=== PATIENT | female | born 1980 | race Caucasian/White ===

== ENCOUNTER 2023-02-22 07:06 | Day surgery (SDC) | payer BC, SELFPAY ==
[2023-02-22] VITALS (12 sets, daily range): BP systolic 97–174; BP diastolic 59–93; PULSE 66–91; RESP 10–27; TEMP 36.2–37; O2SAT 92–100; BMI 36.2
[2023-02-22] MEDS: LACTATED RINGER'S SOLUTION 1,000 ML 50 ML IV (08:06)
[2023-02-22] MEDS: CEFAZOLIN SODIUM/DEXTROSE,ISO 2 GM/50 ML PIGGYBACK IV (08:27)
[2023-02-22] MEDS: BUPIVACAINE HCL 0.25% PF 25 MG/10 ML VIAL 20 ML INJ (08:49)
[2023-02-22] MEDS: ONDANSETRON PF 4 MG/2 ML VIAL IV (10:23)
[2023-02-22] MEDS: HYDROCODONE/ACETAMINOPHEN 5-325 MG TABLET 1 TAB PO (10:57)
--- NOTE | 2023-02-22 11:18 | P.GSPRC_ITS ---
Date of procedure: 02/22/23 Indications for Procedure: this patient is a 42-year-old female who was recently seen for episodes of right upper quaddrant pain. Gallbladder ultrasound revealed cholelithiasis. Robotic cholecystectomy was surgically recommended. The risks benefits options and potential indications of the procedure were discussed in detail with her and she agreed to proceed and consent was signed. Pre-op diagnosis: symptomatic cholelithiasis Post-op diagnosis: same Procedure: robotic cholecystectomy with ICG cholangiogram Surgeon: Alvarez Jenkins Procedure Summary: The patient was brought to the operating room placed in the supine position. Gen. anesthesia was induced and the patient was intubated. The abdomen was prepped and draped in usual sterile fashion. She had been given preoperative IV antibiotics and was also given preoperative ICG. A site in the left upper quadrant was infiltrated with half percent Marcaine with epinephrine. A small incision was made. A 12 mm port was placed through this incision and advanced into the peritoneal cavity under laparoscopic guidance. The abdomen was then insufflated to 15 mmHg of carbon dioxide. The camera was reintroduced and safe port site entry was confirmed. Three 8 mm robotic ports were then placed, one at the umbilicus and two in the right lateral abdomen following local anesthesia under direct visualization. The camera was removed and an additional 8 mm port was placed through the 12 mm port. the patient was then placed in reverse Trendelenburg position and banked to the left. At this time the da Nitish XI was brought to the field and camera was introduced and all ports direct and instruments introduced in standard fashion.at this time I left the operating table and attended the surgeon consult. The fundus of the gallbladder is grasped and retracted cephalad. The region of Gil's pouch was grasped and retracted laterally. Dissection was not carried out in the region of the triangle of Calot. The cystic duct was readily identified. This was confirmed with a senior applications architect. This was then divided between clips. Posterior to this the cystic artery was identified. This was divided after clip placement. The gallbladder was then taken off the liver using electrocautery. Excellent hemostasis and secured clip placement was noted. The gallbladder was then placed in a retrieval bag. This was brought out through the 12 mm port site intact. Instruments, camera and ports were subsequently removed and the abdomen was desufflated. Skin incisions were closed with subcuticular sutures of 4-0 Vicryl. Sterile dressings were applied. The patient tolerated the procedure well and was transferred to the recovery area in stable condition. Estimated blood loss (mL): 2 Specimens: gallbladder Complications: No
--- NOTE | 2023-02-22 11:19 | PC.NURSE ---
INSTRUCTION GIVEN ON PEP DEVICE AND PATIENT IS USING WITHOUT DIFFICULTY. PATIENT UPTO CHAIR WITH ASSIST X1
--- NOTE | 2023-02-22 11:23 | PC.NURSE ---
UPTO BR AND VOIDS WITHOUT DIFFICULTY
== END 2023-02-22 11:36 | disposition home or self-care (01) ==
PROVIDERS: PCP Family Medicine; Visit Provider Surgery
PROC: (CPT 47563; principal; 2023-02-22 08:30)
DX: K80.10 Calculus of gallbladder with chronic cholecystitis without obstruction (principal); E78.00 Pure hypercholesterolemia, unspecified; Z79.899 Other long term (current) drug therapy; Z90.710 Acquired absence of both cervix and uterus; F17.210 Nicotine dependence, cigarettes, uncomplicated
CPT/HCPCS: 47563; 36415; 88304

== ENCOUNTER 2024-11-10 06:23 | Emergency (ER) | payer BC, SELFPAY ==
[2024-11-10 06:32] VITALS: BP 115/85; PULSE 91; TEMP 36.7; O2SAT 98; BMI 38.3
[2024-11-10 06:48] VITALS: O2SAT 98
[2024-11-10] MEDS: lidocaine HCL 15 ML, MAG HYDROX/ALUMINUM HYD/SIMETH 30 ML, HYOSCYAMINE SULFATE 0.25 MG PO (07:57)
--- NOTE | 2024-11-10 11:25 | ED_ITS ---
HPI - Abdominal Pain General Chief Complaint: Abdominal Pain Stated Complaint: ABDOMINAL PAIN Time Seen by Provider: 11/10/24 07:44 Source: patient Mode of arrival: walk-in Limitations: no limitations History of Present Illness HPI narrative: The patient is coming to the ER with 1 year history of epigastric pain that is evaluated multiple time according to her , patient mentioned that she was evaluated multiple times she had cholecystectomy even to help improving the pain but she still have that epigastric pain. The pain usually comes whenever she is feeling hungry and get better whenever she eating and sometimes it is not related to food No shortness of breath no nausea no vomiting no other concerns Patient referred to GI as outpatient but she never was evaluated because she did not have an appointment yet Related Data Home Medications ?Medication ?Instructions ?Recorded ?Confirmed B12 IM IM .weekly 02/15/23 hyoscyamine 0.15 mg tablet 0.125 mg PO Q6H PRN dyspepsia 02/15/23 02/22/23 ondansetron 4 mg disintegrating 4 mg PO Q6H PRN nausea and vomiting 02/15/23 02/22/23 tablet semaglutide (weight loss) subcut .weekly 02/15/23 Previous Rx's ?Medication ?Instructions ?Recorded hydrocodone 5 mg-acetaminophen 325 1 tab PO Q6H PRN pain #4 tabs 02/22/23 mg tablet famotidine 20 mg tablet (Pepcid) 20 mg PO BID #10 tabs 11/10/24 pantoprazole 40 mg tablet,delayed 40 mg PO DAILY 4 weeks #28 tabs 11/10/24 release (Protonix) sucralfate 100 mg/mL oral 1 g (10 mL) PO TID #414 mL 11/10/24 suspension Allergies Allergy/AdvReac Type Severity Reaction Status Date / Time morphine Allergy Severe itching Verified 11/10/24 06:38 Review of Systems ROS Status of ROS 10 or more systems reviewed and unremark able except as noted in history and below [facility] Medical History (Updated 11/10/24 @ 08:21 by Estee Judge MD) Globus sensation ?R09.89 - Other specified symptoms and signs involving the circulatory and respiratory systems (ICD-10) Dysphagia ?R13.10 - Dysphagia, unspecified (ICD-10) Uterine leiomyoma ?D25.9 - Leiomyoma of uterus, unspecified (ICD-10) UTI (urinary tract infection) ?N39.0 - Urinary tract infection, site not specified (ICD-10) Placenta previa ?O44.00 - Complete placenta previa NOS or without hemorrhage, unspecified trimester (ICD-10) Menorrhagia ?N92.0 - Excessive and frequent menstruation with regular cycle (ICD-10) High cholesterol ?E78.00 - Pure hypercholesterolemia, unspecified (ICD-10) Hiatal hernia ?K44.9 - Diaphragmatic hernia without obstruction or gangrene (ICD-10) Headache ?R51.9 - Headache, unspecified (ICD-10) Dyspareunia Dysmenorrhea ?N94.6 - Dysmenorrhea, unspecified (ICD-10) Acute pelvic pain ?R10.2 - Pelvic and perineal pain (ICD-10) Gallstone ?K80.20 - Calculus of gallbladder without cholecystitis without obstruction (ICD-10) Thin blood ?D69.6 - Thrombocytopenia, unspecified (ICD-10) Anxiety ?F41.9 - Anxiety disorder, unspecified (ICD-10) Cyst of kidney, acquired ?N28.1 - Cyst of kidney, acquired (ICD-10) Surgical History (Updated 02/15/23 @ 11:08 by Amy Rdoriguez) History of tonsillectomy and adenoidectomy ?Z90.89 - Acquired absence of other organs (ICD-10) [place] teeth extracted ?K08.409 - Partial loss of teeth, unspecified cause, unspecified class (ICD- 10) S/P total abdominal hysterectomy ?Z90.710 - Acquired absence of both cervix and uterus (ICD-10) History of esophagogastroduodenoscopy (EGD) ?Z98.890 - Other specified postprocedural states (ICD-10) Hx of laparoscopy ?Z98.890 - Other specified postprocedural states (ICD-10) History of bilateral ligation of fallopian tubes ?Z98.51 - Tubal ligation status (ICD-10) Family History (Updated 02/15/23 @ 10:32 by Amy Rodriguez) Other Cystic kidney disease Family history of cancer Family history of diabetes mellitus Heart disease Hepatitis Social History (Updated 02/15/23 @ 11:10 by Amy Rodriguez) Within the past year, how often did you have a drink containing alcohol: never Score interpretation: A score less than 3 is consistent with normal alcohol consumption. Smoking status: Current every day smoker What tobacco products do you use: cigarettes Cigarettes per day: 5 Years smoked: 20 Smoking pack-years: 5.00 Non-prescribed substance use: denies use Previous occupational history: [employer] Highest level of school completed/degree received: Associate degree: occupational, technical, vocational program Little interest or pleasure in doing things: not at all Feeling down, depressed, or hopeless: not at all Exam Narrative Exam Narrative: Nurses notes and vital signs reviewed and patient is not hypoxic. General: Well-appearing and in no apparent distress. Skin: Warm, dry, no pallor noted. No rash. Head: Normocephalic, atraumatic. Neck: Supple, non-tender. Eye: Pupils are equal, round and EOMI. No scleral icterus. Ears, Nose, Mouth, and Throat: TM are clear, no nasal mucosal hypertrophy. Oral mucosa is moist, no posterior oropharynx erythema, uvula is mid-line Cardiovascular: Regular Rate and Rhythm without murmur, gallop or rub. Respiratory: No accessory muscle use or respiratory distress. Lungs are clear to auscultation, no wheezing, rales or rhonchi Chest Wall: no tenderness Back: No midline thoracic or lumbar vertebral tenderness. No CVA tenderness Musculoskeletal: normal ROM, no calf or popliteal tenderness, no lower extremity edema/swelling GI: Abdomen is soft, non-distended. Epigastric discomfort but no tenderness on exam Constitutional Vital Signs, click to edit/add: Last Vital Signs Temp 98.0 F 11/10/24 06:32 Pulse 91 H 11/10/24 06:32 Resp 20 11/10/24 06:32 BP 115/85 11/10/24 06:32 Pulse Ox 98 11/10/24 06:48 O2 Del Method Room Air 11/10/24 06:48 Course Vital Signs Vital signs: Vital Signs Temperature 98.0 F 11/10/24 06:32 Pulse Rate 91 H 11/10/24 06:32 Respiratory Rate 20 11/10/24 06:32 Blood Pressure 115/85 11/10/24 06:32 Pulse Oximetry 98 11/10/24 06:32 Oxygen Delivery Method Room Air 11/10/24 06:32 Temperature 98.0 F 11/10/24 06:32 Pulse Rate 91 H 11/10/24 06:32 Respiratory Rate 20 11/10/24 06:32 Blood Pressure 115/85 11/10/24 06:32 Pulse Oximetry 98 11/10/24 06:48 Oxygen Delivery Method Room Air 11/10/24 06:48 MDM - Abdominal Pain MDM Narrative Medical decision making narrative: The patient presentation likely secondary to gastritis or peptic ulcer she was started on GI cocktail in the ER after which she was feeling better Discharged home with Pepcid Protonix and sucralfate Patient referred to GI as outpatient instructed about the diet that is proper right now soft liquid diet for the next few days The patient is to follow up with primary care physician in next 2-3 days or to return to the emergency department should any of the signs or symptoms worsen or new symptoms develop. The patient agrees with the following Diagnosis and Treatment plan and the patient will be discharged home. Discharge Plan Discharge Chief Complaint: Abdominal Pain Clinical Impression: Gastritis Patient Disposition: Home, Self-Care Time of Disposition Decision: 08:21 Condition: Good Mode of Transportation: Private Vehicle Prescriptions / Home Meds: New famotidine [Pepcid] 20 mg tablet 20 mg PO BID Qty: 10 0RF pantoprazole [Protonix] 40 mg tablet,delayed release (DR/EC) 40 mg PO DAILY 28 Days Qty: 28 0RF sucralfate 100 mg/mL suspension 1 g PO TID Qty: 414 0RF No Action B12 IM IM .weekly semaglutide (weight loss) subcut .weekly hyoscyamine 0.15 mg tablet 0.125 mg PO Q6H PRN (Reason: dyspepsia) ondansetron 4 mg tablet,disintegrating 4 mg PO Q6H PRN (Reason: nausea and vomiting) hydrocodone-acetaminophen 5-325 mg tablet 1 tab PO Q6H PRN (Reason: pain) Qty: 4 0RF Print Language: Czech Instructions: Gastritis (ED), Diet for Stomach Ulcers and Gastritis (ED) Referrals: Blanka Campbell DO [Physician] - 1 week DAVIS FELTON [Primary Care Provider] - 1 week Discharge Date/Time: 11/10/24 08:30
== END 2024-11-10 08:30 | disposition home or self-care (01) ==
PROVIDERS: Emergency Provider Emergency Medicine; PCP Family Medicine
DX: K29.70 Gastritis, unspecified, without bleeding (principal); R10.13 Epigastric pain; Z90.49 Acquired absence of other specified parts of digestive tract; F17.200 Nicotine dependence, unspecified, uncomplicated
CPT/HCPCS: 99283

== ENCOUNTER 2024-12-04 12:39 | Outpatient (OUT) | payer BC, SELFPAY ==
--- NOTE | 2024-12-04 13:10 | MM_ITS ---
Patient Name: CRISTIAN RUTH MR#: [id number] : 1980 Exam Date: 12/04/2024 Ordering Doctor: DR CRUZ RODRIGUEZ RADIOLOGY REPORT PROCEDURE: MM TOMOSYNTHESIS SCREENING BI COMPARISON: MG MAMM TOM DIAG W CAD, 12/17/2016. INDICATIONS: screening for malignant neoplasm of breast Calculator Name NCI Breast Cancer Risk Assessment Tool 5 Year Breast Cancer Risk 0.50% Lifetime Breast Cancer Risk 7.20% Personal Breast Cancer No Personal Ovarian Cancer No Treatments None Family Cancers Grandmother-maternal with uterine cancer at age ~35. LOCATION: [facility] BREAST COMPOSITION: There are scattered areas of fibroglandular density. FINDINGS: DIAGNOSTIC CATEGORY 1--NEGATIVE. LEFT BREAST: No significant suspicious finding. RIGHT BREAST: No significant suspicious finding. RECOMMENDATIONS: ROUTINE MAMMOGRAM AND CLINICAL EVALUATION IN 12 MONTHS. PLEASE NOTE: A NORMAL MAMMOGRAM DOES NOT EXCLUDE THE POSSIBILITY OF BREAST CANCER. A CLINICALLY SUSPICIOUS PALPABLE LUMP SHOULD BE BIOPSIED. Dictated by: Indio Alicea DO on 12/04/2024 at 16:59 Approved by: Indio Alicea DO on 12/04/2024 at 17:01
== END 2024-12-04 12:40 | disposition home or self-care (01) ==
LOC: MAMMO 12:39
PROVIDERS: PCP Family Medicine; Visit Provider Physician Assistant
DX: Z12.31 Encounter for screening mammogram for malignant neoplasm of breast (principal); Z80.8 Family history of malignant neoplasm of other organs or systems
CPT/HCPCS: 77063; 77067